=== PATIENT | male | born 1940 | race Caucasian/White ===

== ENCOUNTER 2017-09-17 09:49 | Day surgery (SDC) | payer MEDICARE ==
[~2017-09-17 09:49] MED LIST: Lidocaine 1% MPF wEPI 200,000* 30 ML SDV ONE; Sodium Bicarbonate 8.4% SYR* 10 ML SYRINGE ONE
[2017-09-17 11:35] VITALS: BP 127/84
--- NOTE | 2017-09-22 13:19 | OP ---
DATE OF OPERATION: 09/17/17 [facility] DATE OF : 42 SURGEON: Keven Shaikh MD. OIL PAINTER: HERMES Blanton. ANESTHESIOLOGIST: None. ANESTHESIA: Local with 1% lidocaine with epinephrine and bicarbonate. PRE-OP DIAGNOSIS: Recurrent left long finger trigger finger after prior release of the A1 joana. POST-OP DIAGNOSIS: Recurrent left long finger trigger finger after prior release of the A1 joana. OPERATIVE PROCEDURES: Revision left long finger trigger finger release with release of the A1 joana and proximal tendon sheath and tenosynovectomy. INDICATIONS: Sriram had the trigger finger released elsewhere a few years ago in 2011. It stayed fixed over a short period of time and then came back. He has been dealing with it for years. It has finally gotten to the point where the triggering is so severe that it is quite painful and hard for him to extend the finger. I talked to him about his options. He wanted to proceed. He understands we may have to excise the slip of the FDS tendon. ESTIMATED BLOOD LOSS: 5 mL. COMPLICATIONS: None. FINDINGS: As expected. DESCRIPTION OF PROCEDURE: Sriram was seen in the preoperative holding area. We had a time-out and infiltrated the operative area with 1% lidocaine with epinephrine and bicarbonate. Short time later we came back to the operating room where the arm was prepped and draped in the usual fashion. I did exsanguinate arm with the Esmarch and the tourniquet was inflated to 250 mmHg. I extended his prior incision proximally. Dissection was carried down the, digital nerves were protected. The tendon sheath overlying the tendon was released. It was quite constrictive. The release was completed distally and proximally with the tenotomy scissors. There was quite a bit of tenosynovitis and this was all excised. I did continue the release down to the mid palm and I released the proximal 25% of the A2 joana. At this point, Sriram was wide awake. So, I had him flex and extend the finger multiple times. We cannot induce any triggering whatsoever. It looked like the area where it had been triggering was more proximal at the leading edge of the A1 joana. There was quite a nodule there and an indentation where it looked like the finger would be triggering. At this point, everything was looking good, so we irrigated out the wounds. Skin was closed with 4-0 nylon suture. I infiltrated some Marcaine. The wound was dressed with Xeroform, 4x4s, sterile Webril, and an Vipul bandage. He was woken up and taken to the recovery room in stable condition. [id number]/[facility] #: [id number] MTDD
== END 2017-09-17 11:36 | disposition home or self-care (01) ==
LOC: OR 09:49
PROVIDERS: ATTEND Orthopaedic Surgery Hand Surgery
DX: M65.332 Trigger finger, left middle finger (principal); I10 Essential (primary) hypertension; J44.9 Chronic obstructive pulmonary disease, unspecified; Z95.0 Presence of cardiac pacemaker; I25.10 Atherosclerotic heart disease of native coronary artery without angina pectoris; I34.8 Other nonrheumatic mitral valve disorders; Z87.891 Personal history of nicotine dependence
CPT/HCPCS: J2001

== ENCOUNTER 2019-01-23 18:32 | Emergency (ER) | payer MEDICARE, MEDICAID ==
[2019-01-23 18:54] VITALS: BP 115/80
--- NOTE | 2019-01-23 19:24 | UC ---
Skin Complaint HPI - HPI Summary HPI Summary: 78 yo male with painful /itchy rash on right hand initially looked like a bad sunburn now with some blisters Has been outdoors alot on tractor/playing golf - History of Current Complaint Chief Complaint: UCSkin Time Seen by Provider: 01/23/19 18:47 Stated Complaint: RASH AND SWELLING ON HAND Hx Obtained From: Patient Onset/Duration: Gradual Onset, Lasting Days - 1 week Timing: Constant Onset Severity: Mild Current Severity: Mild Pain Intensity: 4 Pain Scale Used: 0-10 Numeric Location: Hand (Right) Character: Pruritus, Pain, Redness, Painful Aggravating Factor(s): Other - sun Alleviating Factor(s): Nothing Associated Signs & Symptoms: Positive: Rash - Allergy/Home Medications Allergies/Adverse Reactions: Allergies Allergy/AdvReac Type Severity Reaction Status Date / Time lisinopril Allergy Eyes Verified 01/23/19 18:42 Itchy/Swollen/Red/Watery PMH/Surg Hx/FS Hx/Imm Hx Previously Healthy: Yes Endocrine History: Dyslipidemia Cardiovascular History: Cardiac Disease, Hypertension - Surgical History Surgical History: Yes Surgery Procedure, Year, and Place: pacemaker placement. trigger finger surgery. cataract surgery, occular implants. colonscopy. R ear surgery. vasectomy - Family History Known Family History: Positive: Hypertension - Social History Alcohol Use: Occasionally Substance Use Type: None Smoking Status (MU): Former Smoker When Did the Patient Quit Smoking/Using Tobacco: 2009 Review of Systems All Other Systems Reviewed And Are Negative: Yes Constitutional: Positive: Negative Skin: Positive: Rash Eyes: Positive: Negative ENT: Positive: Negative Respiratory: Positive: Negative Cardiovascular: Positive: Negative Gastrointestinal: Positive: Negative Genitourinary: Positive: Negative Motor: Positive: Negative Musculoskeletal: Positive: Negative Neurological: Positive: Negative Psychological: Positive: Negative Physical Exam Triage Information Reviewed: Yes Appearance: Well-Appearing, No Pain Distress, Well-Nourished Vital Signs: Initial Vital Signs Temp 98.5 F 01/23/19 18:46 Pulse 80 01/23/19 18:46 Resp 18 01/23/19 18:46 BP 115/80 01/23/19 18:46 Pulse Ox 93 01/23/19 18:46 Vital Signs Reviewed: Yes Eyes: Positive: Conjunctiva Clear ENT: Negative: Hearing grossly normal, Nasal congestion, Nasal drainage, Trismus , Muffled voice, Hoarse voice, Sinus tenderness Neck: Positive: Supple, Nontender, No Lymphadenopathy Respiratory: Positive: Lungs clear, Normal breath sounds, No respiratory distress Cardiovascular: Positive: RRR, No Murmur Musculoskeletal: Positive: No Edema Neurological: Positive: Alert Psychological Exam: Normal Skin Exam: Other - see image Skin: Positive: Rashes Images Hands: 1 - rash 2 - rash- red(bright) some small blisters, no vesicles Course/Dx - Diagnoses Provider Diagnosis: Phytophotodermatitis Discharge - Sign-Out/Discharge Documenting (check all that apply): Patient Departure All imaging exams completed and their final reports reviewed: No Studies - Discharge Plan Condition: Stable Disposition: HOME Prescriptions: Triamcinolone 0.5% CREAM(NF) [Triamcinolone 0.5% CREAM*] 1 applic TOPICAL QID # 60 tube Patient Education Materials: Phytophotodermatitis (ED) Referrals: Adam Dowd MD [Primary Care Provider] - 5 Days Additional Instructions: We can see this type of rash with exposure to wild parsnip - Billing Disposition and Condition Condition: STABLE Disposition: Home
== END 2019-01-23 19:20 | disposition home or self-care (01) ==
LOC: UCEAST 18:32
DX: L56.2 Photocontact dermatitis [berloque dermatitis] (principal); I10 Essential (primary) hypertension; Z87.891 Personal history of nicotine dependence
CPT/HCPCS: 99212; G0463

== ENCOUNTER 2019-05-24 12:02 | Emergency (ER) | payer MEDICARE, MEDICAID ==
[2019-05-24 12:10] VITALS: BP 140/89
--- NOTE | 2019-05-24 12:27 | UC ---
Skin Complaint HPI - HPI Summary HPI Summary: hives back chest and abdomen for 4 weeks---seen at [facility]" and was given triamcinolone without any relief----patient isunsure what would be causing this or if he had any exposures to anything different - History of Current Complaint Chief Complaint: UCRash Time Seen by Provider: 05/24/19 12:11 Stated Complaint: RASH Hx Obtained From: Patient Onset/Duration: Sudden Onset, Lasting Weeks - 4 Timing: Constant Onset Severity: Moderate Current Severity: Mild Pain Intensity: 0 Pain Scale Used: 0-10 Numeric Location: Diffuse Character: Redness, Raised Aggravating Factor(s): Nothing Alleviating Factor(s): Other - 2 benadryl q4-6 hours Associated Signs & Symptoms: Positive: Negative - Allergy/Home Medications Allergies/Adverse Reactions: Allergies Allergy/AdvReac Type Severity Reaction Status Date / Time lisinopril Allergy Eyes Verified 05/24/19 12:12 Itchy/Swollen/Red/Watery PMH/Surg Hx/FS Hx/Imm Hx Previously Healthy: No Endocrine History: Hypothyroidism, Dyslipidemia Cardiovascular History: Hypertension, Pacemaker/ICD, Congestive Heart Failure - Surgical History Surgical History: Yes Surgery Procedure, Year, and Place: pacemaker placement. trigger finger surgery. cataract surgery, occular implants. colonscopy. R ear surgery. vasectomy - Family History Known Family History: Positive: Hypertension - Social History Occupation: Retired Lives: With Family Alcohol Use: Occasionally Substance Use Type: None Smoking Status (MU): Former Smoker When Did the Patient Quit Smoking/Using Tobacco: 2009 Review of Systems All Other Systems Reviewed And Are Negative: Yes Constitutional: Positive: Negative Skin: Positive: Rash Eyes: Positive: Negative ENT: Positive: Negative Respiratory: Positive: Negative Cardiovascular: Positive: Negative Gastrointestinal: Positive: Negative Genitourinary: Positive: Negative Motor: Positive: Negative Neurovascular: Positive: Negative Musculoskeletal: Positive: Negative Neurological: Positive: Negative Psychological: Positive: Negative Is Patient Immunocompromised?: No Physical Exam Triage Information Reviewed: Yes Appearance: Well-Appearing, No Pain Distress, Well-Nourished Vital Signs: Initial Vital Signs Temp 98.7 F 05/24/19 12:07 Pulse 81 05/24/19 12:07 Resp 16 05/24/19 12:07 BP 140/89 05/24/19 12:07 Pulse Ox 100 05/24/19 12:07 Vital Signs Reviewed: Yes Eye Exam: Normal Eyes: Positive: Conjunctiva Clear ENT Exam: Normal ENT: Positive: Normal ENT inspection, Hearing grossly normal. Negative: Nasal congestion, Nasal drainage, Trismus, Muffled voice, Hoarse voice, Sinus tenderness Dental Exam: Normal Neck exam: Normal Neck: Positive: Supple, Nontender Respiratory Exam: Normal Respiratory: Positive: Chest non-tender, No respiratory distress, No accessory muscle use Cardiovascular Exam: Normal Cardiovascular: Positive: RRR, Pulses Normal, Brisk Capillary Refill Musculoskeletal Exam: Normal Musculoskeletal: Positive: Strength Intact, ROM Intact, No Edema Neurological Exam: Normal Neurological: Positive: Alert, Fatigued Psychological Exam: Normal Psychological: Positive: Normal Response To Family, Decreased Age Appropriate Behavior - scattered hives Skin: Positive: Other Course/Dx - Course Course Of Treatment: continue apple cider vinegar compress as patient report relief of itching, zyrtec, pepcid, short course of prednisone, cool com-press follow with Dr. Dowd - Diagnoses Provider Diagnosis: Hives of unknown origin, Hypertension Discharge ED - Sign-Out/Discharge Documenting (check all that apply): Patient Departure All imaging exams completed and their final reports reviewed: No Studies - Discharge Plan Condition: Stable Disposition: HOME Prescriptions: Cetirizine* [ZyrTEC 10 MG TAB*] 10 mg PO DAILY #10 tab Famotidine TAB 40 MG(NF) [Pepcid TAB 40 MG(NF)] 40 mg PO DAILY #14 tab predniSONE [Prednisone 20 MG TAB] 20 mg PO DAILY 6 Days #9 tablet Patient Education Materials: Urticaria (ED), Hypertension (ED) Referrals: Adam Dowd MD [Primary Care Provider] - 1 Week - Billing Disposition and Condition Condition: STABLE Disposition: Home - Attestation Statements Provider Attestation: Per institutional requirements, I have reviewed the chart, however, I was not consulted specifically or made aware of this patient by the midlevel provider. I did not personally evaluate, interact with , or disposition this patient.
== END 2019-05-24 12:46 | disposition home or self-care (01) ==
LOC: UCEAST 12:02
DX: L50.9 Urticaria, unspecified (principal); I10 Essential (primary) hypertension; Z88.8 Allergy status to other drugs, medicaments and biological substances; Z87.891 Personal history of nicotine dependence
CPT/HCPCS: 99212; G0463

== ENCOUNTER 2021-04-25 16:26 | Observation (INO) ==
[2021-04-25 17:00] LABS: Hematocrit 47 % (42-52); Hemoglobin 15.3 g/dL (14.0-18.0); Mean Corpuscular HGB Conc 33 g/dL (31-36); Mean Corpuscular Hemoglobin 29 pg (27-31); Mean Corpuscular Volume 89 fL (80-94); Platelet Count 223 10^3/uL (150-450); Red Blood Count 5.22 10^6 /uL (4.18-5.48); Red Cell Distribution Width 15 % (10-15); White Blood Count 14.5 10^3/uL (3.5-10.8)
[2021-04-25 17:07] LABS: ABS Basophils 0.1 10^3/ul (0-0.2); ABS Lymphocytes 2.5 10^3/ul (1.0-4.8); ABS Monocytes 1.7 10^3/ul (0-0.8); ABS Neutrophils 10.3 10^3/ul (1.5-7.7); Lymphocyte % 16.9 %
[2021-04-25 17:14] LABS: INR 1.2 (0.86-1.15)
[2021-04-25 17:21] LABS: Troponin I 0.01 ng/mL (<0.03)
[2021-04-25 17:39] LABS: Albumin 4.1 g/dL (3.2-5.2); Albumin/Globulin Ratio 1.5 (1-3); Calcium 9.4 mg/dL (8.6-10.3); EGFR African American 71.4 (>60); Globulin 2.8 g/dL (2-4); Potassium 4.1 mmol/L (3.5-5.0); Total Bilirubin 1.8 mg/dL (0.2-1.0); Total Protein 6.9 g/dL (6.4-8.9)
[2021-04-25] MEDS ORDERED: Al Hydrox/Mg Hydrox/Simet LIQ 30 ML UDC PO ONE (23:52)
[2021-04-26] MEDS ORDERED: Ondansetron 4 mg VIAL 2 MG/ML 2 ml VIAL IV PRN (02:29)
[2021-04-26] MEDS ORDERED: Albuterol HFA INHALER 8 gm MDI INH PRN (03:10)
[2021-04-26] MEDS ORDERED: NS 0.9% 1000 ml BAG 1,000 ML IV ONE (05:54)
[2021-04-26 06:01] LABS: ABS Lymphocytes 2.6 10^3/ul (1.0-4.8); ABS Monocytes 1.2 10^3/ul (0-0.8); ABS Neutrophils 5.4 10^3/ul (1.5-7.7); Eosinophil % 0.5 %; Hematocrit 39 % (42-52); Hemoglobin 13.4 g/dL (14.0-18.0); Mean Corpuscular HGB Conc 34 g/dL (31-36); Mean Corpuscular Hemoglobin 30 pg (27-31); Mean Corpuscular Volume 89 fL (80-94); Mean Platelet Volume 7.8 fL (7.4-10.4); Platelet Count 162 10^3/uL (150-450); Red Blood Count 4.42 10^6 /uL (4.18-5.48); Red Cell Distribution Width 14 % (10-15); White Blood Count 9.3 10^3/uL (3.5-10.8)
[2021-04-26 06:13] LABS: INR 1.31 (0.86-1.15)
[2021-04-26 06:17] LABS: C Reactive Protein 167.39 mg/L (<8.01); Calcium 8.5 mg/dL (8.6-10.3); EGFR African American 82.4 (>60); EGFR Non-African American 68.1 (>60); HDL Cholesterol 38.7 mg/dL; Magnesium 1.8 mg/dL (1.9-2.7); Potassium 4.1 mmol/L (3.5-5.0)
[2021-04-26 06:49] LABS: TSH Ultra Thyroid Stim Horm 0.84 mcIU/mL (0.34-5.60)
[2021-04-26 07:12] LABS: Albumin 3.4 g/dL (3.2-5.2); Albumin/Globulin Ratio 1.4 (1-3); Direct Bilirubin 0.2 mg/dL (0.03-0.18); Globulin 2.4 g/dL (2-4); Indirect Bilirubin 1.5 mg/dL (0.3-1.0); Total Bilirubin 1.7 mg/dL (0.2-1.0); Total Protein 5.8 g/dL (6.4-8.9)
[2021-04-26] MEDS ORDERED: Enoxaparin 40 MG/0.4 ML SYR SUBCUT SCH (09:00)
[2021-04-26] MEDS ORDERED: FLUTICAS/UMECLI/VILANT 100-62.5-25 MDI (NF) INH SCH (09:00)
[2021-04-26] MEDS ORDERED: Aspirin EC 81 mg TAB.EC (enteric coated) PO SCH (09:00)
[2021-04-26 09:10] LABS: Erythrocyte Sed Rate 19 mm/Hr (0-19)
[2021-04-26] MEDS ORDERED: Regadenoson 0.4 MG/5 ML SYRINGE ONE (16:00)
[2021-04-26 19:42] VITALS: BP 104/70
== END 2021-04-26 19:42 | disposition home or self-care (01) ==
LOC: EDHOLD 16:26 → ED 16:26 → MEDTELE 16:26 → EDHOLD 04-26 19:41
PROVIDERS: ADMIT Internal Medicine; ATTEND Internal Medicine

== ENCOUNTER 2022-07-18 13:38 | Inpatient (IN) ==
[2022-07-18 14:09] LABS: Hematocrit 52 % (42-52); Hemoglobin 17.2 g/dL (14.0-18.0); Mean Corpuscular HGB Conc 33 g/dL (31-36); Mean Corpuscular Hemoglobin 29 pg (27-31); Mean Corpuscular Volume 88 fL (80-94); Mean Platelet Volume 8.6 fL (7.4-10.4); Platelet Count 187 10^3/uL (150-450); Red Blood Count 5.92 10^6 /uL (4.18-5.48); Red Cell Distribution Width 13 % (10-15)
[2022-07-18 14:16] LABS: INR 1.36 (0.88-1.18)
[2022-07-18] MEDS ORDERED: cefTRIAXone 1 gm/50 mL D5W 1 GM/50 ML BAG IV ONE (14:19)
[2022-07-18] MEDS ORDERED: Azithromycin 500 mg/250 ml NS 500 MG/250 ML BAG IVPB ONE (14:19)
[2022-07-18 14:50] LABS: Albumin 4.2 g/dL (3.2-5.2); Albumin/Globulin Ratio 1.8 (1-3); Globulin 2.4 g/dL (2-4); Potassium 4.3 mmol/L (3.5-5.0); Total Bilirubin 2.3 mg/dL (0.2-1.0); Total Protein 6.6 g/dL (6.4-8.9); eGFR CKD-EPI 66.4 (>60)
[2022-07-18] MEDS ORDERED: Lactated Ringers 1000 ml BAG 1,000 ML IV ONE (15:00)
[2022-07-18] MEDS ORDERED: Albuterol/Ipratropium NEB.SOL (2.5/0.5 MG) 3 ML NEB.SOLN INH ONE (15:06)
[2022-07-18] MEDS: Al Hydrox/Mg Hydrox/Simet LIQ 30 ML UDC PO ONE (15:27)
[2022-07-18 15:29] LABS: RBC Morphology Normal (Normal)
[2022-07-18 15:30] LABS: ABS Lymphocytes 1.3 10^3/ul (1.0-4.8); ABS Monocytes 0.9 10^3/ul (0-0.8); ABS Neutrophils 18.7 10^3/ul (1.5-7.7); Eosinophil % 0.1 %; Lymphocyte % 6.3 %; Nucleated Red Blood Cells % 0.1
[2022-07-18 15:46] LABS: High Sensitivity Troponin 1 Hr 11 pg/mL (<20)
[2022-07-18 16:40] LABS: PCO2 Arterial 39 mmHg (35-45); PO2 Arterial 69 mmHg (80-100)
[2022-07-18] MEDS ORDERED: Acetaminophen IV 1 GM/100ML 1,000 MG/100 ML BAG IV PRN ×2 (16:58→23:15)
[2022-07-18 17:17] LABS: TSH Ultra Thyroid Stim Horm 2.77 mcIU/mL (0.34-5.60)
[2022-07-18 17:18] LABS: C Reactive Protein 142.39 mg/L (<8.01); Direct Bilirubin 0.3 mg/dL (0.03-0.18)
[2022-07-18] MEDS: Enoxaparin 40 MG/0.4 ML SYR SUBCUT SCH (17:25)
[2022-07-18] MEDS: Albuterol/Ipratropium NEB.SOL (2.5/0.5 MG) 3 ML NEB.SOLN INH PRN (17:27)
[2022-07-18] MEDS ORDERED: Vancomycin 1,000 MG in NS 0.9% 250 ml 250 ML IVPB ONE (18:20)
[2022-07-18] MEDS ORDERED: Vancomycin 1,250 MG in NS 0.9% 250 ml 250 ML IVPB ONE (18:30)
[2022-07-18] MEDS ORDERED: Vancomycin per Pharmacy 1 EA NOTE FOLLOW UP SCH (19:00)
[2022-07-18] MEDS: Albuterol HFA INHALER 8 gm MDI INH SCH ×2 (19:20→23:54)
[2022-07-18] MEDS ORDERED: Lactated Ringers 1000 ml BAG 1,000 ML IV SCH (21:00)
[2022-07-19] MEDS: Albuterol/Ipratropium NEB.SOL (2.5/0.5 MG) 3 ML NEB.SOLN INH PRN (01:41)
[2022-07-19] MEDS: Albuterol HFA INHALER 8 gm MDI INH SCH ×3 (01:41→11:17)
[2022-07-19] MEDS ORDERED: methylPREDNISolone SOD SUCC 40 mg/ml 1 ml VIAL IV ONE (02:08)
[2022-07-19] MEDS ORDERED: Furosemide 20 mg/2 ml IV VIAL IV SLOW PU ONE (02:34)
[2022-07-19 07:03] LABS: Hematocrit 45 % (42-52); Hemoglobin 15.1 g/dL (14.0-18.0); Mean Corpuscular HGB Conc 34 g/dL (31-36); Mean Corpuscular Hemoglobin 30 pg (27-31); Mean Corpuscular Volume 88 fL (80-94); Mean Platelet Volume 8.7 fL (7.4-10.4); Platelet Count 148 10^3/uL (150-450); Red Blood Count 5.09 10^6 /uL (4.18-5.48); Red Cell Distribution Width 13 % (10-15); White Blood Count 18.4 10^3/uL (3.5-10.8)
[2022-07-19 07:16] LABS: Calcium 8.1 mg/dL (8.6-10.3); Potassium 4.3 mmol/L (3.5-5.0); eGFR CKD-EPI 67.9 (>60)
[2022-07-19] MEDS ORDERED: Perflutren Lipid Microsphere 3 ML VIAL ONE (08:14)
[2022-07-19] MEDS ORDERED: Furosemide 20 mg/2 ml IV VIAL IV ONE (08:53)
[2022-07-19] MEDS ORDERED: fentaNYL 100 mcg/2 ml 50 MCG/ML VIAL IV SLOW PU ONE (08:59)
[2022-07-19] MEDS ORDERED: Morphine 4 MG/ML VIAL (1 ml) IV ONE (09:05)
[2022-07-19] MEDS ORDERED: Morphine 2 MG/ML SYRINGE IV PRN (09:06)
[2022-07-19] MEDS: Aspirin EC 81 mg TAB.EC (enteric coated) PO SCH (09:29)
[2022-07-19] MEDS ORDERED: Sodium Chloride(INHALANT) 7% 4 ML NEB.SOLN INH ONE (09:30)
[2022-07-19 09:52] LABS: RBC Morphology Normal (Normal)
[2022-07-19 09:53] LABS: ABS Lymphocytes 1.1 10^3/ul (1.0-4.8); ABS Neutrophils 16.3 10^3/ul (1.5-7.7); Lymphocyte % 5.7 %
[2022-07-19 11:30] LABS: PCO2 Arterial 57 mmHg (35-45)
[2022-07-19 11:40] LABS: PO2 Arterial < 38 mmHg (80-100)
[2022-07-19] MEDS ORDERED: Albuterol/Ipratropium NEB.SOL (2.5/0.5 MG) 3 ML NEB.SOLN INH ONE (11:52)
[2022-07-19 12:05] LABS: PCO2 Arterial 38 mmHg (35-45); PO2 Arterial 73 mmHg (80-100)
[2022-07-19] MEDS: Cefepime 2 GM in Dextrose 2 GM/50 ML BAG IV SCH (12:42)
[2022-07-19] MEDS ORDERED: cefTRIAXone 1 gm/50 mL D5W 1 GM/50 ML BAG IV SCH (14:30)
[2022-07-19] MEDS: Albuterol/Ipratropium NEB.SOL (2.5/0.5 MG) 3 ML NEB.SOLN INH SCH ×3 (14:50→23:43)
[2022-07-19] MEDS: Azithromycin 500 mg/250 ml NS 500 MG/250 ML BAG IVPB SCH (15:19)
[2022-07-19] MEDS: Enoxaparin 40 MG/0.4 ML SYR SUBCUT SCH (16:15)
[2022-07-19] MEDS ORDERED: Vancomycin 1,250 MG in NS 0.9% 250 ml 250 ML IVPB SCH (18:30)
[2022-07-19] MEDS ORDERED: Vancomycin 1,000 MG in NS 0.9% 250 ml 250 ML IVPB ONE (21:03)
[2022-07-19] MEDS ORDERED: Vancomycin per Pharmacy 1 EA NOTE FOLLOW UP SCH (22:00)
[2022-07-19] MEDS: Vancomycin 1,250 MG in NS 0.9% 250 ml 250 ML IVPB SCH (22:32)
[2022-07-19] MEDS: Benzocaine/Menthol LOZ PO PRN (22:46)
[2022-07-20] MEDS: Cefepime 2 GM in Dextrose 2 GM/50 ML BAG IV SCH ×3 (00:22→23:56)
[2022-07-20] MEDS: Albuterol/Ipratropium NEB.SOL (2.5/0.5 MG) 3 ML NEB.SOLN INH SCH ×6 (06:04→22:48)
[2022-07-20 07:01] LABS: Hematocrit 40 % (42-52); Hemoglobin 13.1 g/dL (14.0-18.0); Mean Corpuscular HGB Conc 33 g/dL (31-36); Mean Corpuscular Hemoglobin 29 pg (27-31); Mean Corpuscular Volume 89 fL (80-94); Mean Platelet Volume 8.6 fL (7.4-10.4); Platelet Count 152 10^3/uL (150-450); Red Blood Count 4.52 10^6 /uL (4.18-5.48); Red Cell Distribution Width 14 % (10-15); White Blood Count 19.8 10^3/uL (3.5-10.8)
[2022-07-20 07:05] LABS: ABS Lymphocytes 1.2 10^3/ul (1.0-4.8); ABS Monocytes 1.3 10^3/ul (0-0.8); ABS Neutrophils 17.2 10^3/ul (1.5-7.7); Lymphocyte % 6.2 %; Nucleated Red Blood Cells % 0.1
[2022-07-20] MEDS ORDERED: Morphine 2 MG/ML SYRINGE IV PRN ×2 (07:07→08:20)
[2022-07-20 07:37] LABS: Potassium 4.4 mmol/L (3.5-5.0); eGFR CKD-EPI 88.8 (>60)
[2022-07-20] MEDS: Aspirin EC 81 mg TAB.EC (enteric coated) PO SCH (09:33)
[2022-07-20] MEDS: Azithromycin 500 mg/250 ml NS 500 MG/250 ML BAG IVPB SCH (14:57)
[2022-07-20] MEDS: Enoxaparin 40 MG/0.4 ML SYR SUBCUT SCH (16:59)
[2022-07-20] MEDS: Vancomycin 1,250 MG in NS 0.9% 250 ml 250 ML IVPB SCH (22:21)
[2022-07-21] MEDS: Albuterol/Ipratropium NEB.SOL (2.5/0.5 MG) 3 ML NEB.SOLN INH SCH ×6 (02:52→22:55)
[2022-07-21 06:25] LABS: Hematocrit 39 % (42-52); Mean Corpuscular HGB Conc 33 g/dL (31-36); Mean Corpuscular Hemoglobin 29 pg (27-31); Mean Corpuscular Volume 88 fL (80-94); Mean Platelet Volume 8.4 fL (7.4-10.4); Platelet Count 197 10^3/uL (150-450); Red Blood Count 4.49 10^6 /uL (4.18-5.48); Red Cell Distribution Width 14 % (10-15); White Blood Count 19.4 10^3/uL (3.5-10.8)
[2022-07-21 07:09] LABS: eGFR CKD-EPI 92.7 (>60)
[2022-07-21] MEDS: Aspirin EC 81 mg TAB.EC (enteric coated) PO SCH (09:57)
[2022-07-21] MEDS: Benzocaine/Menthol LOZ PO PRN (09:57)
[2022-07-21] MEDS: Cefepime 2 GM in Dextrose 2 GM/50 ML BAG IV SCH (11:41)
[2022-07-21] MEDS ORDERED: Linezolid 600 MG IVPREMIX(*) 600 MG/300 ML BAG IVPB SCH (13:00)
[2022-07-21] MEDS: Linezolid 600 MG IVPREMIX(*) 600 MG/300 ML BAG IVPB SCH (16:53)
[2022-07-21] MEDS ORDERED: Vancomycin Trough Check NOTE FOLLOW UP ONE ×2 (18:00→21:30)
[2022-07-21] MEDS: Enoxaparin 40 MG/0.4 ML SYR SUBCUT SCH (18:12)
[2022-07-22] MEDS: Albuterol/Ipratropium NEB.SOL (2.5/0.5 MG) 3 ML NEB.SOLN INH SCH ×5 (03:11→19:16)
[2022-07-22] MEDS: Linezolid 600 MG IVPREMIX(*) 600 MG/300 ML BAG IVPB SCH ×2 (03:25→16:07)
[2022-07-22 07:32] LABS: Hematocrit 39 % (42-52); Hemoglobin 13.2 g/dL (14.0-18.0); Mean Corpuscular HGB Conc 34 g/dL (31-36); Mean Corpuscular Hemoglobin 29 pg (27-31); Mean Corpuscular Volume 86 fL (80-94); Mean Platelet Volume 7.8 fL (7.4-10.4); Platelet Count 227 10^3/uL (150-450); Red Blood Count 4.48 10^6 /uL (4.18-5.48); Red Cell Distribution Width 14 % (10-15); White Blood Count 19.2 10^3/uL (3.5-10.8)
[2022-07-22 08:03] LABS: Albumin 3.2 g/dL (3.2-5.2); Albumin/Globulin Ratio 1.5 (1-3); Calcium 8.4 mg/dL (8.6-10.3); Globulin 2.2 g/dL (2-4); Potassium 4.5 mmol/L (3.5-5.0); Total Bilirubin 1.3 mg/dL (0.2-1.0); Total Protein 5.4 g/dL (6.4-8.9); eGFR CKD-EPI 88.8 (>60)
[2022-07-22] MEDS: Aspirin EC 81 mg TAB.EC (enteric coated) PO SCH (08:46)
[2022-07-22 10:10] LABS: ABS Lymphocytes 1.6 10^3/ul (1.0-4.8); ABS Monocytes 1.4 10^3/ul (0-0.8); ABS Neutrophils 16.1 10^3/ul (1.5-7.7); Lymphocyte % 8.6 %; RBC Morphology Normal (Normal)
[2022-07-22] MEDS: Enoxaparin 40 MG/0.4 ML SYR SUBCUT SCH (16:07)
[2022-07-23] MEDS: Albuterol/Ipratropium NEB.SOL (2.5/0.5 MG) 3 ML NEB.SOLN INH SCH ×7 (00:02→22:43)
[2022-07-23] MEDS: Linezolid 600 MG IVPREMIX(*) 600 MG/300 ML BAG IVPB SCH ×2 (03:39→15:18)
[2022-07-23] MEDS: Benzocaine/Menthol LOZ PO PRN (05:48)
[2022-07-23 08:06] LABS: Hematocrit 41 % (42-52); Hemoglobin 13.9 g/dL (14.0-18.0); Mean Corpuscular HGB Conc 34 g/dL (31-36); Mean Corpuscular Hemoglobin 30 pg (27-31); Mean Corpuscular Volume 87 fL (80-94); Mean Platelet Volume 7.8 fL (7.4-10.4); Platelet Count 240 10^3/uL (150-450); Red Cell Distribution Width 14 % (10-15); White Blood Count 18.7 10^3/uL (3.5-10.8)
[2022-07-23 08:35] LABS: Albumin 3.2 g/dL (3.2-5.2); Calcium 8.3 mg/dL (8.6-10.3); Magnesium 1.9 mg/dL (1.9-2.7); Total Bilirubin 1.8 mg/dL (0.2-1.0)
[2022-07-23 08:41] LABS: Albumin/Globulin Ratio 1.4 (1-3); Globulin 2.3 g/dL (2-4); Total Protein 5.5 g/dL (6.4-8.9); eGFR CKD-EPI 91.2 (>60)
[2022-07-23 09:25] LABS: ABS Lymphocytes 1.7 10^3/ul (1.0-4.8); ABS Monocytes 1.7 10^3/ul (0-0.8); ABS Neutrophils 15.3 10^3/ul (1.5-7.7); Lymphocyte % 9.1 %; RBC Morphology Normal (Normal)
[2022-07-23] MEDS: Aspirin EC 81 mg TAB.EC (enteric coated) PO SCH (09:41)
[2022-07-23] MEDS: guaiFENesin/CODIENE 100mg/10mg 5 ML UDC PO PRN (09:43)
[2022-07-23] MEDS: Enoxaparin 40 MG/0.4 ML SYR SUBCUT SCH (15:18)
[2022-07-24] MEDS: Albuterol/Ipratropium NEB.SOL (2.5/0.5 MG) 3 ML NEB.SOLN INH SCH ×6 (02:33→22:19)
[2022-07-24] MEDS: Linezolid 600 MG IVPREMIX(*) 600 MG/300 ML BAG IVPB SCH ×2 (03:35→18:06)
[2022-07-24 06:36] LABS: Hematocrit 41 % (42-52); Hemoglobin 13.5 g/dL (14.0-18.0); Mean Corpuscular HGB Conc 33 g/dL (31-36); Mean Corpuscular Hemoglobin 29 pg (27-31); Mean Corpuscular Volume 87 fL (80-94); Mean Platelet Volume 7.6 fL (7.4-10.4); Platelet Count 232 10^3/uL (150-450); Red Blood Count 4.63 10^6 /uL (4.18-5.48); Red Cell Distribution Width 13 % (10-15); White Blood Count 13.4 10^3/uL (3.5-10.8)
[2022-07-24 06:56] LABS: RBC Morphology Normal (Normal)
[2022-07-24 06:57] LABS: ABS Basophils 0.1 10^3/ul (0-0.2); ABS Lymphocytes 1.6 10^3/ul (1.0-4.8); ABS Monocytes 1.3 10^3/ul (0-0.8); ABS Neutrophils 10.4 10^3/ul (1.5-7.7); Eosinophil % 0.1 %; Lymphocyte % 11.7 %
[2022-07-24 07:21] LABS: Calcium 8.1 mg/dL (8.6-10.3); Potassium 4.2 mmol/L (3.5-5.0); eGFR CKD-EPI 91.2 (>60)
[2022-07-24] MEDS: Aspirin EC 81 mg TAB.EC (enteric coated) PO SCH (10:18)
[2022-07-24] MEDS: Enoxaparin 40 MG/0.4 ML SYR SUBCUT SCH (18:07)
[2022-07-24] MEDS: Morphine 2 MG/ML SYRINGE IV PRN (21:44)
[2022-07-25] MEDS: Linezolid 600 MG IVPREMIX(*) 600 MG/300 ML BAG IVPB SCH ×2 (03:36→16:39)
[2022-07-25] MEDS: guaiFENesin/CODIENE 100mg/10mg 5 ML UDC PO PRN ×3 (04:48→16:39)
[2022-07-25] MEDS: Albuterol/Ipratropium NEB.SOL (2.5/0.5 MG) 3 ML NEB.SOLN INH SCH ×4 (04:59→19:39)
[2022-07-25 06:26] LABS: Hematocrit 43 % (42-52); Hemoglobin 14.2 g/dL (14.0-18.0); Mean Corpuscular HGB Conc 33 g/dL (31-36); Mean Corpuscular Hemoglobin 29 pg (27-31); Mean Corpuscular Volume 87 fL (80-94); Mean Platelet Volume 7.5 fL (7.4-10.4); Platelet Count 255 10^3/uL (150-450); Red Blood Count 4.89 10^6 /uL (4.18-5.48); Red Cell Distribution Width 14 % (10-15); White Blood Count 15.6 10^3/uL (3.5-10.8)
[2022-07-25 07:18] LABS: Magnesium 1.9 mg/dL (1.9-2.7); Potassium 4.2 mmol/L (3.5-5.0); eGFR CKD-EPI 89.5 (>60)
[2022-07-25 09:01] LABS: ABS Basophils 0.1 10^3/ul (0-0.2); ABS Eosinophils 0.1 10^3/ul (0-0.6); ABS Lymphocytes 1.5 10^3/ul (1.0-4.8); ABS Monocytes 0.5 10^3/ul (0-0.8); ABS Neutrophils 13.4 10^3/ul (1.5-7.7); Eosinophil % 0.8 %; Lymphocyte % 9.7 %; RBC Morphology Normal (Normal)
[2022-07-25 09:09] LABS: Albumin 3.1 g/dL (3.2-5.2); Albumin/Globulin Ratio 1.4 (1-3); Globulin 2.2 g/dL (2-4); Total Bilirubin 1.9 mg/dL (0.2-1.0); Total Protein 5.3 g/dL (6.4-8.9)
[2022-07-25] MEDS: Aspirin EC 81 mg TAB.EC (enteric coated) PO SCH (09:12)
[2022-07-25 11:15] LABS: INR 1.23 (0.88-1.18)
[2022-07-25] MEDS: Enoxaparin 40 MG/0.4 ML SYR SUBCUT SCH (16:39)
[2022-07-26] MEDS: Albuterol/Ipratropium NEB.SOL (2.5/0.5 MG) 3 ML NEB.SOLN INH SCH ×6 (00:20→23:57)
[2022-07-26] MEDS: Linezolid 600 MG IVPREMIX(*) 600 MG/300 ML BAG IVPB SCH ×2 (03:45→17:57)
[2022-07-26] MEDS: guaiFENesin/CODIENE 100mg/10mg 5 ML UDC PO PRN (03:45)
[2022-07-26 07:14] LABS: Hematocrit 43 % (42-52); Hemoglobin 14.1 g/dL (14.0-18.0); Mean Corpuscular HGB Conc 33 g/dL (31-36); Mean Corpuscular Hemoglobin 29 pg (27-31); Mean Corpuscular Volume 87 fL (80-94); Mean Platelet Volume 7.4 fL (7.4-10.4); Platelet Count 273 10^3/uL (150-450); Red Cell Distribution Width 14 % (10-15); White Blood Count 15.3 10^3/uL (3.5-10.8)
[2022-07-26] MEDS: Aspirin EC 81 mg TAB.EC (enteric coated) PO SCH (08:00)
[2022-07-26] MEDS: Morphine 2 MG/ML SYRINGE IV PRN (08:29)
[2022-07-26] MEDS ORDERED: Al Hydrox/Mg Hydrox/Simet LIQ 30 ML UDC PO PRN (08:49)
[2022-07-26 09:13] LABS: RBC Morphology Normal (Normal)
[2022-07-26] MEDS: Al Hydrox/Mg Hydrox/Simet LIQ 30 ML UDC PO ONE (09:13)
[2022-07-26 09:14] LABS: ABS Basophils 0.1 10^3/ul (0-0.2); ABS Eosinophils 0.1 10^3/ul (0-0.6); ABS Lymphocytes 1.9 10^3/ul (1.0-4.8); ABS Monocytes 0.8 10^3/ul (0-0.8); ABS Neutrophils 12.5 10^3/ul (1.5-7.7); Eosinophil % 0.7 %; Lymphocyte % 12.1 %
[2022-07-26] MEDS ORDERED: Succinylcholine 200 mg VIAL 20 mg/ml 10 ml VIAL (200 mg) ONE (12:34)
[2022-07-26] MEDS ORDERED: Al Hydrox/Mg Hydrox/Simet LIQ 30 ML UDC PO SCH (16:00)
[2022-07-26] MEDS: Enoxaparin 40 MG/0.4 ML SYR SUBCUT SCH (17:57)
[2022-07-26] MEDS: Al Hydrox/Mg Hydrox/Simet LIQ 30 ML UDC PO SCH (21:50)
[2022-07-27] MEDS: Linezolid 600 MG IVPREMIX(*) 600 MG/300 ML BAG IVPB SCH (03:32)
[2022-07-27 07:01] LABS: Hematocrit 41 % (42-52); Hemoglobin 13.7 g/dL (14.0-18.0); Mean Corpuscular HGB Conc 33 g/dL (31-36); Mean Corpuscular Hemoglobin 29 pg (27-31); Mean Corpuscular Volume 87 fL (80-94); Mean Platelet Volume 7.2 fL (7.4-10.4); Platelet Count 252 10^3/uL (150-450); Red Blood Count 4.73 10^6 /uL (4.18-5.48); Red Cell Distribution Width 14 % (10-15)
[2022-07-27] MEDS: Albuterol/Ipratropium NEB.SOL (2.5/0.5 MG) 3 ML NEB.SOLN INH SCH (07:10)
[2022-07-27 07:33] LABS: Albumin/Globulin Ratio 1.3 (1-3); Direct Bilirubin 0.4 mg/dL (0.03-0.18); Globulin 2.3 g/dL (2-4); Magnesium 1.9 mg/dL (1.9-2.7); Potassium 4.5 mmol/L (3.5-5.0); Total Bilirubin 1.4 mg/dL (0.2-1.0); Total Protein 5.3 g/dL (6.4-8.9); eGFR CKD-EPI 90.5 (>60)
[2022-07-27 08:40] LABS: ABS Basophils 0.1 10^3/ul (0-0.2); ABS Eosinophils 0.1 10^3/ul (0-0.6); ABS Lymphocytes 1.9 10^3/ul (1.0-4.8); ABS Monocytes 0.8 10^3/ul (0-0.8); ABS Neutrophils 11.1 10^3/ul (1.5-7.7); Eosinophil % 0.7 %; Lymphocyte % 13.9 %
[2022-07-27] MEDS ORDERED: Albuterol 2.5mg/3 ml (0.083%) NEB.SOLN INH PRN (10:05)
[2022-07-27] MEDS: Aspirin EC 81 mg TAB.EC (enteric coated) PO SCH (10:07)
[2022-07-27] MEDS: Al Hydrox/Mg Hydrox/Simet LIQ 30 ML UDC PO SCH ×3 (10:08→22:08)
[2022-07-27] MEDS ORDERED: Vancomycin per Pharmacy 1 EA NOTE FOLLOW UP PRN (10:17)
[2022-07-27] MEDS ORDERED: Vancomycin 1,500 MG in NS 0.9% 250 ml 250 ML IVPB ONE (11:00)
[2022-07-27] MEDS: SPIRIVA Respimat (tiotropium) 2.5 mcg/inh Inhaler INH SCH (11:49)
[2022-07-27] MEDS: Mometasone/Formoter 100/5 MDI INH SCH ×2 (13:32→19:43)
[2022-07-27] MEDS: Enoxaparin 40 MG/0.4 ML SYR SUBCUT SCH (15:58)
[2022-07-27] MEDS: Vancomycin 1000 MG in NS 0.9% 250 ML IVPB SCH (22:08)
[2022-07-28 06:54] LABS: Hematocrit 39 % (42-52); Hemoglobin 13.1 g/dL (14.0-18.0); Mean Corpuscular HGB Conc 34 g/dL (31-36); Mean Corpuscular Hemoglobin 30 pg (27-31); Mean Corpuscular Volume 88 fL (80-94); Mean Platelet Volume 6.9 fL (7.4-10.4); Platelet Count 209 10^3/uL (150-450); Red Blood Count 4.44 10^6 /uL (4.18-5.48); Red Cell Distribution Width 14 % (10-15); White Blood Count 13.6 10^3/uL (3.5-10.8)
[2022-07-28 07:02] LABS: ABS Basophils 0.1 10^3/ul (0-0.2); ABS Eosinophils 0.1 10^3/ul (0-0.6); ABS Lymphocytes 1.5 10^3/ul (1.0-4.8); ABS Monocytes 0.8 10^3/ul (0-0.8); ABS Neutrophils 11.2 10^3/ul (1.5-7.7); Eosinophil % 0.8 %; Lymphocyte % 10.8 %; Nucleated Red Blood Cells % 0.1
[2022-07-28] MEDS: Mometasone/Formoter 100/5 MDI INH SCH ×2 (07:34→22:02)
[2022-07-28] MEDS: SPIRIVA Respimat (tiotropium) 2.5 mcg/inh Inhaler INH SCH (07:35)
[2022-07-28 07:43] LABS: Magnesium 1.8 mg/dL (1.9-2.7); Potassium 4.4 mmol/L (3.5-5.0)
[2022-07-28] MEDS ORDERED: Magnesium Sulfate 2 gm BAG 2 GM/50 ML BAG IVPB ONE (08:50)
[2022-07-28 09:11] LABS: Albumin 2.9 g/dL (3.2-5.2); Albumin/Globulin Ratio 1.3 (1-3); Globulin 2.2 g/dL (2-4); Total Bilirubin 1.1 mg/dL (0.2-1.0); Total Protein 5.1 g/dL (6.4-8.9)
[2022-07-28] MEDS: Al Hydrox/Mg Hydrox/Simet LIQ 30 ML UDC PO SCH ×2 (09:35→16:55)
[2022-07-28] MEDS: Aspirin EC 81 mg TAB.EC (enteric coated) PO SCH (09:37)
[2022-07-28] MEDS: Vancomycin 1000 MG in NS 0.9% 250 ML IVPB SCH (11:51)
[2022-07-28] MEDS: Enoxaparin 40 MG/0.4 ML SYR SUBCUT SCH (16:56)
[2022-07-29] MEDS: Al Hydrox/Mg Hydrox/Simet LIQ 30 ML UDC PO SCH ×3 (00:52→16:07)
[2022-07-29] MEDS: Vancomycin 1000 MG in NS 0.9% 250 ML IVPB SCH ×2 (00:52→13:50)
[2022-07-29] MEDS: Mometasone/Formoter 100/5 MDI INH SCH (07:23)
[2022-07-29] MEDS: SPIRIVA Respimat (tiotropium) 2.5 mcg/inh Inhaler INH SCH (07:25)
[2022-07-29] MEDS: Aspirin EC 81 mg TAB.EC (enteric coated) PO SCH (09:04)
[2022-07-29] MEDS ORDERED: Vancomycin Trough Check NOTE FOLLOW UP ONE (11:00)
[2022-07-29] MEDS ORDERED: Loperamide LIQ 2 MG/15 ML UDC PO ONE (11:32)
[2022-07-29 15:48] VITALS: BP 139/84
[2022-07-29] MEDS: Enoxaparin 40 MG/0.4 ML SYR SUBCUT SCH (16:07)
== END 2022-07-29 16:55 | disposition home or self-care (01) | DRG 871 ==
LOC: ED 13:38 → EDHOLD 13:38 → MED 17:45 → SUATTDRO 07-19 10:47
PROVIDERS: ADMIT Internal Medicine; ATTEND Internal Medicine
PROC: O.CATEE (2022-07-26 13:15)